=== PATIENT | female | born 1960 | race Caucasian/White ===

== ENCOUNTER 2016-04-28 20:24 | Emergency (ER) | payer OTHER ==
[2016-04-28] MEDS ORDERED: IOPAMIDOL 370 (76%) 100 ML VIAL IV ONE (20:25)
[2016-04-29] MEDS ORDERED: MORPHINE SULFATE 4 MG/ML SYRINGE ONE (00:31)
[2016-04-29] MEDS ORDERED: PROCHLORPERAZINE 5 MG/ML 2 ML VIAL ONE (00:31)
[2016-04-29 00:40] LABS: EOS % 0.2 % (0.9-2.9); IMM NEUT # 0.1 K/mm3 (0-0.2); IMM NEUT% 0.4 % (0-1)
[2016-04-29 00:42] LABS: ABSOLUTE NEUTROPHIL COUNT 11.8 K/mm3 (1.8-7.7); BASO % 0.3 % (0.2-1.0); HEMOGLOBIN 16.2 gm/l (12.0-16.0); LYMPH # 0.8 (1.0-4.8); LYMPH % 6.3 % (15-45); MEAN CORPUSCULAR HEMOGLOBIN 27.8 pg (27.0-31.0); MEAN CORPUSCULAR HGB CONC 33.1 g/dl (33.0-37.0); MEAN PLATELET VOLUME 10.2 fl (7.4-10.4); MONO # 0.5 (0.0-0.8); MONO % 3.5 % (4-12); NEUT % 89.3 % (43-75); PLATELET COUNT 260 K/mm3 (130-400); RED CELL DISTRIBUTION WIDTH 12.7 % (11.5-14.5)
[2016-04-29 00:48] LABS: ALB/GLOB RATIO 1.2 (>1.0); ALBUMIN 4.1 gm/dL (3.5-5.7); CALCIUM 9.4 mg/dL (8.6-10.3)
[2016-04-29] MEDS ORDERED: LACTATED RINGERS 1,000 ML ONE (00:59)
[2016-04-29 01:01] LABS: MAGNESIUM 1.7 mg/dL (1.9-2.7)
[2016-04-29 01:31] LABS: SPECIFIC GRAVITY 1.015 (1.001-1.030); URINE BILIRUBIN NEGATIVE (NEGATIVE); URINE BLOOD NEGATIVE (NEGATIVE); URINE GLUCOSE (UA) 3+ (NEGATIVE); URINE LEUKOCYTE ESTERASE TRACE (NEGATIVE); URINE NITRITE NEGATIVE (NEGATIVE); URINE PROTEIN TRACE (NEGATIVE); URINE UROBILINOGEN NORMAL (0-1 mg/dl)
[2016-04-29 01:35] LABS: HCG,QUALITATIVE URINE NEGATIVE; URINE APPEARANCE SL CLOUDY; URINE COLOR YELLOW
[2016-04-29 01:38] LABS: URINE BACTERIA TRACE; URINE MUCUS 1+
[2016-04-29 01:39] LABS: URINE OTHER FEW BUDDING YEAST
--- NOTE | 2016-04-29 08:10 | CT ---
Name: JOSEFA ACOSTA Exam: CT abdomen pelvis with contrast Comparison: None History: Left lower quadrant pain Procedure: Helical CT using multidetector technique was applied to the abdomen and pelvis during intravenous administration of 100 cc Isovue-[id number]. No oral contrast was given per ordering physician. An automated dose reduction technique was used to minimize patient radiation dose. Findings: CT abdomen (contrast enhanced): Lung bases are clear. Heart is not enlarged. There is no pericardial effusion. Liver is normal size. Diffuse intra and extrahepatic biliary dilation is present consistent with patient's prior cholecystectomy. Pancreas, adrenal glands, kidneys, aorta, IVC and portal vein are grossly within normal limits. Spleen is normal size and contains a 1 cm rounded hypodensity. Stomach is unremarkable. There is liquid stool within nondilated colon. Small bowel loops contain fluid but are not particularly dilated. There is diverticulosis of the descending colon. There is no free air, free fluid or suspicious adenopathy. Degenerative disease spine is present. CT pelvis (contrast enhanced): Bladder is nearly empty. Uterus is absent. There is a small amount of soft tissue in the adnexa with small calcifications. The spleen represent atrophic ovaries. Dominant pelvic mass or adnexal masses not present. There is liquid stool throughout the colon. There has been a sigmoid colon to sigmoid colon anastomosis is widely patent. There are a few distal colonic diverticuli. The appendix is not identified. Small bowel is unremarkable. There is no free air, free fluid or suspicious adenopathy. There is a stimulating device subcutaneous fat of the right buttocks with a right transitional sacral approach. Impression: 1. Distal colonic diverticulosis without current evidence for diverticulitis. There is been prior sigmoid colon surgery and there is no current evidence for anastomotic leak or stenosis 2. Liquid stool throughout the colon raise question of colitis 3. Nonvisualization of the appendix there is no pericecal stranding. 4. Diffuse intra and extrahepatic biliary dilation consistent with prior cholecystectomy 5. Prior hysterectomy and anterior abdominal wall repair 6. 9 mm hypodensity within the spleen which is too small to characterize on CT. A follow-up ultrasound if clinically necessary. Note: Findings were transmitted to the emergency department from [facility] at 0148 hours
== END 2016-04-29 03:22 | disposition home or self-care (01) ==
LOC: ED 20:24
DX: R10.9 Unspecified abdominal pain (principal); E11.9 Type 2 diabetes mellitus without complications; E78.00 Pure hypercholesterolemia, unspecified; G89.29 Other chronic pain; J45.909 Unspecified asthma, uncomplicated; Z86.718 Personal history of other venous thrombosis and embolism; F41.9 Anxiety disorder, unspecified; F32.9 Major depressive disorder, single episode, unspecified; Z79.899 Other long term (current) drug therapy; Z88.1 Allergy status to other antibiotic agents; Z88.2 Allergy status to sulfonamides; Z88.8 Allergy status to other drugs, medicaments and biological substances; Z91.018 Allergy to other foods
CPT/HCPCS: 83605; 83690; 81025; 85025; 87045; 87046 ×2; 87427; 80053; 87205; 83735; 81001; 74177; 96375; 99283; 96374; 96361 ×2; 99284; J0780; J2270; J7120; Q9967